=== PATIENT | female | born 1995 | race Two or more races ===

== ENCOUNTER 2020-09-20 05:19 | Inpatient (IN) | payer OTHER ==
[2020-09-20 06:24] LABS: BASOPHILS % (AUTO) 1 % (0-1); EOSINOPHILS % (AUTO) 1 % (1-7); LYMPHOCYTES % (AUTO) 19 % (22-44); MEAN CORPUSCULAR HEMOGLOBIN 30.8 pg (27.0-34.8); MEAN CORPUSCULAR HGB CONC 33.7 g/dL (32.4-35.8); MEAN PLATELET VOLUME 9.2 fL (7.4-10.4); MONOCYTES % (AUTO) 9 % (2-9); NEUTROPHILS % (AUTO) 71 % (42-75); PLATELET COUNT 212 x10^3/uL (130-400); RED BLOOD COUNT 4.02 x10^6/uL (3.82-5.3)
[2020-09-20 06:35] LABS: ALANINE AMINOTRANSFERASE 15 U/L (12-78); ALBUMIN 2.6 g/dL (3.4-5.0); ANION GAP 6 mmol/L (5-15); BILIRUBIN, DIRECT 0.1 mg/dL (0.1-0.2); CALCIUM 8.8 mg/dL (8.5-10.1); CHLORIDE 109 mmol/L (98-107); CREATININE 0.67 mg/dL (0.55-1.02)
[2020-09-20 06:38] LABS: ALKALINE PHOSPHATASE 141 U/L (45-117); BILIRUBIN,TOTAL 0.4 mg/dL (0.2-1.0); TOTAL PROTEIN 6.6 g/dL (6.4-8.2)
[2020-09-20 06:52] LABS: MICROSCOPIC INDICATED
[2020-09-20] MEDS ORDERED: MISOPROSTOL 25 MCG TABLET VG PRN (08:00)
[2020-09-20] MEDS ORDERED: TERBUTALINE 1 MG/ML, 1ML IVPush PRN (08:00)
[2020-09-20] MEDS ORDERED: D5%-LACTATED RINGERS 1,000 ML IV SCH (08:00)
[2020-09-20] MEDS ORDERED: ONDANSETRON 2MG/ML, 2ML IVPush PRN (08:00)
[2020-09-20] MEDS ORDERED: SODIUM CITRATE/CITRIC ACID 30 ML UDC PO PRN (08:00)
[2020-09-20] MEDS ORDERED: OXYTOCIN 30U/ 0.9% NaCL 500ML 500 ML IV ONE (08:00)
[2020-09-20] MEDS ORDERED: FENTANYL PF 100 MCG/2ML IVPush PRN (08:00)
[2020-09-20] MEDS ORDERED: PENICILLIN GK 2,500,000 UNITS in DEXTROSE 5% 100 ML IVPB SCH (08:00)
[2020-09-20] MEDS ORDERED: PENICILLIN GK 5,000,000 UNITS in DEXTROSE 5% 100 ML IVPB ONE (08:00)
[2020-09-20] MEDS ORDERED: CALCIUM CARBONATE 500 MG TAB.CHEW PO PRN (08:00)
[2020-09-20] MEDS ORDERED: METOCLOPRAMIDE 5 MG/ML, 2ML IVPush PRN (08:00)
[2020-09-20] MEDS ORDERED: TERBUTALINE 1 MG/ML, 1ML SQ PRN (08:00)
[2020-09-20] MEDS ORDERED: ALUMINUM/MAG/SIMETHICONE 30 ML UDC PO PRN (08:00)
[2020-09-20] MEDS ORDERED: OXYTOCIN 30U/ 0.9% NaCL 500ML 500 ML IV PRN (08:00)
[2020-09-20] MEDS ORDERED: LIDOCAINE 1%, 20ML ONE (08:02)
[2020-09-20] MEDS ORDERED: NEWBORN KIT ONE (08:02)
[2020-09-20] MEDS ORDERED: MISOPROSTOL 200 MCG TABLET ONE (08:02)
[2020-09-20] MEDS: LACTATED RINGERS 1,000 ML IV SCH ×3 (08:08→14:00)
[2020-09-20] MEDS ORDERED: BUPIVACAINE 0.25% ONE ×2 (13:37→14:39)
[2020-09-20] MEDS ORDERED: FENTANYL/BUPIV./NS/PF 250 ML EPIDCONT ONE (13:38)
[2020-09-20] MEDS ORDERED: LACTATED RINGERS 1,000 ML IVBOLUS PRN (14:30)
[2020-09-20] MEDS ORDERED: EPHEDRINE 50 MG/ML, 1ML IVPush PRN (14:30)
[2020-09-20] MEDS ORDERED: LACTATED RINGERS 1,000 ML IV SCH (14:30)
[2020-09-20] MEDS ORDERED: FENTANYL/BUPIV./NS/PF 250 ML EPIDCONT SCH (14:30)
[2020-09-20] MEDS ORDERED: PLEASE ENTER HEIGHT AND WEIGHT MC SCH ×2 (15:00)
[2020-09-20] MEDS ORDERED: OXYcodone/APAP 5/325MG TABLET PO PRN ×2 (20:00)
[2020-09-20] MEDS ORDERED: SIMETHICONE 80 MG CHEW TAB PO PRN (20:00)
[2020-09-20] MEDS ORDERED: OXYTOCIN 30U/ 0.9% NaCL 500ML 500 ML IV SCH (20:00)
[2020-09-20] MEDS ORDERED: MISOPROSTOL 200 MCG TABLET PR PRN (20:00)
[2020-09-20] MEDS ORDERED: ONDANSETRON 2MG/ML, 2ML IV PRN (20:00)
[2020-09-20] MEDS ORDERED: MAGNESIUM HYDROXIDE 8%, 30ML UDC PO PRN (20:00)
[2020-09-20] MEDS ORDERED: ACETAMINOPHEN 325 MG TABLET PO PRN (20:00)
[2020-09-20] MEDS ORDERED: DIPH,PERTUSS(ACELL),TET VAC/PF NC IM-VACC PRN (20:00)
[2020-09-20] MEDS ORDERED: RHOGAM FROM BLOOD BANK 1 NOTE EA IM/IV ONE (20:00)
[2020-09-20 22:15] VITALS: BP 115/75
[2020-09-20] MEDS: IBUPROFEN 600 MG TABLET PO PRN (23:33)
[2020-09-20] MEDS: DOCUSATE 100 MG CAPSULE PO PRN (23:33)
[2020-09-21 02:30] VITALS: BP 116/77
[2020-09-21 03:27] LABS: BASOPHILS % (AUTO) 0 % (0-1); EOSINOPHILS % (AUTO) 1 % (1-7); LYMPHOCYTES % (AUTO) 15 % (22-44); MEAN CORPUSCULAR HEMOGLOBIN 31.2 pg (27.0-34.8); MEAN CORPUSCULAR HGB CONC 34.1 g/dL (32.4-35.8); MEAN PLATELET VOLUME 9.1 fL (7.4-10.4); MONOCYTES % (AUTO) 5 % (2-9); NEUTROPHILS % (AUTO) 80 % (42-75); PLATELET COUNT 188 x10^3/uL (130-400); RED BLOOD COUNT 3.72 x10^6/uL (3.82-5.3); RED CELL DISTRIBUTION WIDTH 14.2 % (9.6-15.2)
[2020-09-21 04:40] VITALS: BP 122/84
[2020-09-21] MEDS: IBUPROFEN 600 MG TABLET PO PRN ×3 (04:47→19:10)
[2020-09-21 08:30] VITALS: BP 108/71
[2020-09-21] MEDS: DOCUSATE 100 MG CAPSULE PO PRN (10:41)
[2020-09-21] MEDS: PRENATAL VIT/IRON/FA 1 EACH TABLET PO SCH (10:41)
[2020-09-21 16:00] VITALS: BP 124/80
[2020-09-21 20:30] VITALS: BP 136/87
[2020-09-22] MEDS: IBUPROFEN 600 MG TABLET PO PRN ×2 (03:49→10:58)
[2020-09-22] MEDS ORDERED: IBUP-1222 PO (06:01)
[2020-09-22 07:35] VITALS: BP 119/81
[2020-09-22] MEDS: PRENATAL VIT/IRON/FA 1 EACH TABLET PO SCH (10:57)
[2020-09-22] MEDS: DOCUSATE 100 MG CAPSULE PO PRN (10:58)
== END 2020-09-22 13:10 | disposition home or self-care (01) | DRG 807 ==
LOC: LDOP 05:19 → LDIP 07:41 → 2NW 21:34
PROVIDERS: ADMIT Obstetrics & Gynecology; ATTEND Obstetrics & Gynecology
PROC: 10E0XZZ Delivery of Products of Conception, External Approach (ICD-10-PCS; principal; 2020-09-20)
PROC: 10907ZC Drainage of Amniotic Fluid, Therapeutic from Products of Conception, Via Natural or Artificial Opening (ICD-10-PCS; 2020-09-20)
PROC: 10H07YZ Insertion of Other Device into Products of Conception, Via Natural or Artificial Opening (ICD-10-PCS; 2020-09-20)
PROC: 3E0R3BZ Introduction of Anesthetic Agent into Spinal Canal, Percutaneous Approach (ICD-10-PCS; 2020-09-20)
PROC: 00HU33Z Insertion of Infusion Device into Spinal Canal, Percutaneous Approach (ICD-10-PCS; 2020-09-20)
PROC: 0HQ9XZZ Repair Perineum Skin, External Approach (ICD-10-PCS; 2020-09-20)
DX: O13.4 Gestational [pregnancy-induced] hypertension without significant proteinuria, complicating childbirth (principal); Z37.0 Single live birth; Z20.822 Contact with and (suspected) exposure to COVID-19; O69.81X0 Labor and delivery complicated by cord around neck, without compression, not applicable or unspecified; O77.0 Labor and delivery complicated by meconium in amniotic fluid; O99.824 Streptococcus B carrier state complicating childbirth; Z3A.39 39 weeks gestation of pregnancy; O70.0 First degree perineal laceration during delivery; Z28.21 Immunization not carried out because of patient refusal
CPT/HCPCS: 36415; 80053; 81001; 82248; 82570; 82962; 84156; 84550; 85025; 86592; 86850; 86900; 87635; G0378; J2540; J2590; J7120

== ENCOUNTER 2020-10-04 09:42 | Emergency (ER) | payer BC, OTHER ==
[~2020-10-04] VITALS: Ht 167.6 cm; Wt 107.5 kg
[~2020-10-04 09:42] MED LIST: IBUP-1222 PO
--- NOTE | 2020-10-04 09:56 | NUR ---
PT TO ROOM 28 W/ C/O L LEG PAIN STARTED 10 DAYS AGO AND HAS GOTTEN PROGRESSIVELY WORSE OVER THE LAST FEW DAYS. DENIES ANY HEAT, REDNESS, SWELLING TO L LEG. C/O PAIN TO OUTER CALF. PT DENIES ANY MEDICAL HX. X 14 DAYS AGO. PT CALLED HER OBGYN AND WAS TOLD TO COME TO ED FOR R/O DVT. PT RESTING ON GURNEY. NADN. MONITORS APPLIED. VSS. WARM BLANKET PROVIDED. CALL LIGHT IN REACH. AKHIL AMBRIZ AT BEDSIDE FOR EVAL.
--- NOTE | 2020-10-04 10:36 | NUR ---
PT CHART REVIEWED AND PLACED FOR RECHECK.
[2020-10-04 10:38] VITALS: BP 117/75
--- NOTE | 2020-10-04 10:39 | NUR ---
PT RESTING ON GURNEY. NADN. VILLALTA.
--- NOTE | 2020-10-04 10:50 | NUR ---
AKHIL AMBRIZ AT BEDSIDE FOR RE-EVAL.
[2020-10-04] MEDS ORDERED: CHLORDIAZEPOXIDE 25 MG CAPSULE PO ONE (11:00)
== END 2020-10-04 11:01 | disposition home or self-care (01) ==
LOC: ED 10:55
DX: S86.912A Strain of unspecified muscle(s) and tendon(s) at lower leg level, left leg, initial encounter (principal); X58.XXXA Exposure to other specified factors, initial encounter; Y93.89 Activity, other specified; Y92.89 Other specified places as the place of occurrence of the external cause; Y99.8 Other external cause status
CPT/HCPCS: 99284